=== PATIENT | female | born 1980 | race Caucasian/White ===

== ENCOUNTER 2016-12-17 09:12 | Emergency (ER) | payer MEDICAID ==
[2016-12-17 10:31] VITALS: BP 122/69
== END 2016-12-17 10:31 | disposition home or self-care (01) ==
LOC: ED 09:12
DX: F32.9 Major depressive disorder, single episode, unspecified (principal); C95.90 Leukemia, unspecified not having achieved remission; E11.9 Type 2 diabetes mellitus without complications; E03.9 Hypothyroidism, unspecified

== ENCOUNTER 2017-06-09 09:55 | Emergency (ER) | payer MEDICAID ==
[~2017-06-09] VITALS: Ht 165.1 cm; Wt 51.2 kg
[2017-06-09 10:00] VITALS: Ht 165.1 cm; Wt 51.2 kg
[2017-06-09 11:23] LABS: BASOPHIL % 0.5 % (0-2); CALCIUM 8.4 mg/dL (8.5-10.1); CHLORIDE SERUM 106 mmol/L (98-107); CREATININE SERUM 0.5 mg/dL (0.6-1.0); GFR1 > 60 mL/min; GLUCOSE SERUM 90 mg/dL (74-106); PLATELET COUNT 258 x10^3mcL (130-400); POTASSIUM SERUM 4.2 mmol/L (3.5-5.1); RED CELL DISTRIBUTION WIDTH 13.4 % (11.5-14.5); SODIUM SERUM 142 mmol/L (136-145)
[2017-06-09 11:27] LABS: ALKALINE PHOSPHATASE 58 U/L (46-116); ALT/SGPT 34 U/L (14-59); AMYLASE 67 U/L (25-115); AST/SGOT 20 U/L (15-37); BILIRUBIN TOTAL 0.33 mg/dL (0.20-1.00); LIPASE 124 IU/L (73-393); TOTAL PROTEIN, SERUM 7.1 g/dL (6.4-8.2)
[2017-06-09 12:28] VITALS: BP 138/95
== END 2017-06-09 12:43 | disposition home or self-care (01) ==
LOC: ED 09:55
PROVIDERS: Specialist
DX: G89.29 Other chronic pain (principal); M25.562 Pain in left knee; M79.1 Myalgia; E11.9 Type 2 diabetes mellitus without complications; E07.9 Disorder of thyroid, unspecified; C95.90 Leukemia, unspecified not having achieved remission
CPT/HCPCS: 82962; 87804; J1885; J7030